=== PATIENT | female | born 1965 | race Caucasian/White ===

== ENCOUNTER 2023-11-10 12:23 | Emergency (ER) | payer OTHER, SELFPAY ==
[2023-11-10 12:31] VITALS: BP 131/94; PULSE 102; RESP 16; TEMP 36.5; O2SAT 96
--- NOTE | 2023-11-10 12:35 | PC.NURSE ---
in br to obtain ua spec.
--- NOTE | 2023-11-10 12:45 | ED.FEMALEGU ---
HPI - Female Genitourinary General Chief complaint: Urogenital-Female Stated complaint: Urinary Problem Time Seen by Provider: 11/10/23 12:45 Source: patient, RN notes reviewed and old records reviewed Mode of arrival: ambulatory Limitations: no limitations History of Present Illness HPI Narrative: 58-year-old female who presents to [facility] with complaints of urinary tract infection symptoms which include urinary burning, abdominal pressure, frequency and urgency of urination and some left lower back pain for 1 week duration. Patient replies that she has had urinary tract infections in the past with last 1 year ago. Patient has no vaginal discharge denies any concern for STD exposure. Patient states she has not had any fever, chills, or sweats. does admit to having some nausea with no vomiting or diarrhea. MD elicited complaint: UTI Pertinent past history: other (past UTI) Onset (ago): week(s) (1) Location of symptoms: suprapubic and low back Severity scale (1-10): 7 Quality of pain: aching and other (pressure) Vaginal discharge: none Vaginal bleeding: none Urinary symptoms: Dysuria, Urgency and Frequency Related Data Home Medications Medication Instructions Recorded Confirmed Ozempic 11/10/23 lisinopril 20 mg tablet mg 11/10/23 meloxicam 15 mg tablet mg 11/10/23 tramadol 50 mg tablet mg 11/10/23 trazodone 50 mg tablet mg 11/10/23 venlafaxine 75 mg capsule,extended mg PO 11/10/23 release 24 hr Allergies Allergy/AdvReac Type Severity Reaction Status Date / Time No Known Allergies Allergy Verified 11/10/23 12:25 Review of Systems Review of Systems: CONSTITUTIONAL: Denies fever, chills, or sweats. CARDIOVASCULAR: Denies chest pain, palpitations, or edema. RESPIRATORY: Denies cough or dyspnea. GASTROINTESTINAL: Denies abdominal pain reports pressure,positive nausea,no vomiting, or diarrhea. GENITOURINARY: Reports dysuria, frequency, urgency. left flank pain no visible hematuria. SKIN: Denies rash or itching. MUSCULOSKELETAL: Some low back pain or myalgia. Reports some Left CVA tenderness NEUROLOGIC: Denies headache All systems reviewed & are unremarkable except as noted in HPI and below PMFSH Past Medical History Medical History (Updated 11/11/23 @ 22:29 by Ruby Frankel NP) Anxiety and depression Arthritis Hypertension Urinary tract infection Social History Social History (Updated 11/11/23 @ 22:25 by Ruby Frankel NP) Smoking status: Never smoker Alcohol intake: current Alcohol use details: social Substance use type: does not use Living arrangements: with family Gender identity (if verbalized by the patient): Female Comments At time of signature, agree with nursing past medical, surgical, social and family history. There is no relevant family history pertinent to the presenting complaint Exam Narrative: GENERAL: Well-appearing, well-nourished, and in no acute distress. HEAD: Normocephalic, atraumatic. NECK: Supple. no lymphadenopathy CHEST: Clear to auscultation. No respiratory distress.SAO2 96% on room air HEART: Regular rate and rhythm. No murmur heard. Normal peripheral pulses. ABDOMEN: Soft, nontender to palpation, nondistended, normal active bowel sounds. Left CVA tenderness, urinary burning, frequency and urgency, some nausea EXTREMITIES: Normal range of motion. No edema. SKIN: Warm, dry, no rash. NEURO: No focal deficits. Alert and oriented x3. Course Course Emergency Course: Patient is aware of diagnosis, understands and agrees to treatment plan.? Anticipatory guidance given.? Patient agrees to follow-up as directed and is aware of reasons to seek care at the emergency department. Portions of this record may have been created with voice recognition software Level of Care: Express Care Visit Vital Signs Vital signs: Vital Signs Temperature 36.5 C 11/10/23 12:31 Pulse Rate 102 H 11/10/23 12:31 Respiratory Rate 16 11/10/23 12:
[2023-11-10 12:48] VITALS: BP 131/94; PULSE 102; RESP 16; TEMP 36.5; O2SAT 96
== END 2023-11-10 13:12 | disposition home or self-care (01) ==
PROVIDERS: Emergency Provider Registered Nurse; PCP Internal Medicine
DX: N39.0 Urinary tract infection, site not specified (principal); B96.20 Unspecified Escherichia coli [E. coli] as the cause of diseases classified elsewhere; M19.90 Unspecified osteoarthritis, unspecified site; I10 Essential (primary) hypertension
CPT/HCPCS: 81003; 87077; 87086; 87186; 99213; G0463